=== PATIENT | male | born 1955 | race Caucasian/White ===

== ENCOUNTER 2019-05-20 16:02 | Observation (INO) | payer SELFPAY ==
[2019-05-20] MEDS ORDERED: Thiamine 100 MG Tab PO ONE (16:48)
[2019-05-20] MEDS ORDERED: Nicotine 21 MG/24 Hr Patch TRDERM ONE (16:48)
[2019-05-20] MEDS ORDERED: Folic Acid 1 MG Tab PO ONE (16:48)
[2019-05-20 18:02] LABS: BLOOD UREA NITROGEN,BUN 9 mg/dL (7.0-18.0); CARBON DIOXIDE,CO2 27.1 mmol/L (21.0-32.0); CHLORIDE,CL 103 mmol/L (98-107); GLUCOSE RANDOM 85 mg/dL (74-106); POTASSIUM,K 4.5 mmol/L (3.5-5.1); SODIUM,NA 142 mmol/L (136-148)
[2019-05-20] MEDS ORDERED: Midazolam 1 MG/ML 2 ML SDV IVPUSH ONE (18:47)
--- NOTE | 2019-05-20 19:57 | CT ---
INDICATION: Altered mental status TECHNIQUE: CT head without contrast. COMPARISON: Head CT 05/01/2018 FINDINGS: The ventricles are in proportion to the cortical full flank consistent with patient`s stated age. Negative for acute intracranial hemorrhage, extra-axial fluid collection or midline shift. There is minimal atherosclerotic calcification of the cavernous portions of the internal carotid arteries bilaterally. The epstein-white matter junction is distinct. The basal cisterns are intact. There is minimal mucosal thickening of the maxillary sinuses. The remainder of the visualized paranasal sinuses and mastoid air cells are well pneumatized. The bony calvarium is intact. IMPRESSION: Unremarkable noncontrast CT examination of the head without acute intracranial abnormality. Dictated by Dariana Blum MD @ 05/20/2019 7:54:32 PM Please note that all CT scans at this facility use dose modulation, iterative reconstruction, and/or weight-based dosing when appropriate to reduce radiation dose to as low as reasonably achievable. Dictated by: Dariana Blum MD @ 05/20/2019 19:54:43 (Electronically Signed)
--- NOTE | 2019-05-20 20:06 | EDM.PDOC ---
ED HPI GENERAL MEDICAL PROBLEM - General Chief Complaint: Behavioral/Psych Stated Complaint: UNK Time Seen by Provider: 05/20/19 16:22 - History of Present Illness INITIAL COMMENTS - FREE TEXT/NARRATIVE: HPI 63-year-old male with history of opiate abuse, EtOH abuse, and minimally treated (trazodone) bipolar disorder presents from [facility] where he is displaying bizarre behavior, patient confused. Patient was reportedly acting more abnormally over the last several days, the patient is noted a [employer] to have a wide array of items in his grocery cart in the produce aisle it was eating pieces of paper and acting bizarrely. Patient was recently transition from trazodone to Seroquel and his daughters concern that he may have excessively ingested this medication. History primarily obtained from law enforcement (sick and history), as well as the patients adult daughter. M/S/F/SocHx notable for: please see HPI; remainder reviewed with patient and in chart. ROS: unable to obtain. Exam HR 99, RR 16, BP 169/92, T 36.6C, SaO2 97% on room air. Gen: pleasant, appears given age, non-toxic in appearance, appears fatigued and will frequently dose off. HEENT: pupils 1.5 mm equal round and reactive, appear to be small for ambient light, NC, AT, EOMI. Resp: Clear to auscultation bilaterally, normal work of breathing, no accessory muscle usage. Card: Regular rate and rhythm with no murmurs, rubs, or gallops, extremities warm and well perfused. GI: nontender to palpation throughout all quadrants, no rebound, guarding. : No suprapubic tenderness to palpation. MSK: No visible deformities, strength and tone without visually appreciable deficit. Skin: Normal color with no visible lesions. Neuro: alert and oriented to self, no facial asymmetry, moving all extremities without discernible abnormalities. Psych: grossly confused, tangential, depressed mood and affect. Labs / Imaging: EKG: SR at 89 BPM, QRS 84 msec, QTc 451 msec, no ST-segment elevations or depressions, T-wave inversions or new LBBB. PVCs present. WBC 11.2, HB 14.0, MCV 99.5, INR 0.94, PTT 24, sodium 142, potassium 4.5, magnesium 1.9, AST 17, ALT 19, alkaline phosphatase 67, TSH 2.62. UDS negative, EtOH <3.0. CT head: unremarkable noncontrast CT examination the head without acute intracranial abnormality. MDM Previous chart, nursing note, labs, imaging, and vitals reviewed. A: 63-year-old male with history of opiate abuse, EtOH abuse, and minimally treated (trazodone) bipolar disorder presents from [facility] where he is displaying bizarre behavior; patient confused on arrival. Evaluation: patient confused and with bizarre behavior. Given the evaluation outlined below, tentatively suspect toxic metabolic encephalopathy, possibly secondary to excessive Seroquel usage. Patient is confused but otherwise well appearing, no clear evidence of cardiac etiology, conduction abnormalities. TSH is within normal limits. No significant electrolyte abnormalities. No evidence of EtOH intoxication, drug screen is negative. Patient does demonstrate confusion, decreased [employer] level, and smaller than expected pupils. The latter feature is not consistent with Seroquel ingestion, however the patient may have a mixed ingestion with opiates (the patients favored street drug). No clear evidence of meningitis, however herpes encephalitis (or other encephalitis) cannot be definitively excluded. LP performed as below. Interpretation deferred to the hospitalist as results are pending at time of admission. 10 mg per kilogram acyclovir given. Alternatively , the patient may have alcohol withdraw or Wernickes encephalitis. Patient demonstrates no vital sign abnormalities suggestive of DTs, however this will require monitoring. The patient was given thiamine and folic acid after initial assessment. CT head unremarkable. Impression: AMS. (please reference below for remainder of encounter information) Lumbar Puncture Indication: evaluate for meningitis. Consent: written. The risks and benefits including the risk of post dural puncture headache, pain at the puncture site and infection were discussed with the patient, the patient understood these risks and agreed to the procedure. After a time out in which the patient's identity was confirmed verbally and by their wrist band, the patient was placed in right lateral decubitus position and was prepped and draped in the usual sterile fashion. The L3/4 spinous process interspace was anesthetized with ~3 mL 1% lidocaine without epinephrine and a spinal needle was inserted to obtain ~6 mL of clear fluid. A cell count and differential were ordered on tube 1, glucose and protein levels on tube 2, gram stain, culture, and sensitivity on tube 3, and cell count and differential on tube 4. The patient tolerated the procedure well without apparent complications. Critical Care Time Organ system(s): [employer] Intervention: Assessment of the patient, interpretation of studies, communication related to patient care. Time: 74 minutes were spent directly related to patient care exclusive of separately billed procedures. Bilateral Feet Pain Score (Numeric/FACES): 10 - Related Data Allergies Allergy/AdvReac Type Severity Reaction Status Date / Time No Known Allergies Allergy Verified 05/08/18 10:05 Home Meds: Home Meds QUEtiapine Fumarate [Seroquel] 25 mg PO ASDIRECTED 05/20/19 [History] Past Medical History HEENT History: Reports: Other (See Below) Other HEENT History: hard of hearing Cardiovascular History: Reports: Blood Clots/VTE/DVT Gastrointestinal History: Reports: None Musculoskeletal History: Reports: Fracture, Other (See Below) Other Musculoskeletal History: rib fx, right hand fx Psychiatric History: Reports: Addiction, Other (See Below) Other Psychiatric History: insomnia Endocrine/Metabolic History: Reports: None Hematologic History: Reports: Anticoagulation Therapy - Past Surgical History HEENT Surgical History: Reports: Other (See Below) Cardiovascular Surgical History: Reports: None GI Surgical History: Reports: Other (See Below) Other GI Surgeries/Procedures: spleenectomy Social & Family History - Family History Family Medical History: Noncontributory - Tobacco Use Smoking Status *Q: Current Every Day Smoker Years of Tobacco use: 55 Packs/Tins Daily: 1 - Caffeine Use Caffeine Use: Reports: None - Recreational Drug Use Recreational Drug Use: Yes Recreational Drug Type: Reports: Heroin, Oxycodone ED ROS GENERAL - Review of Systems Review Of Systems: See Below ED EXAM, GENERAL - Physical Exam Exam: See Below Course - Vital Signs Last Recorded V/S: Last Vital Signs Temp 36.6 C 05/20/19 16:14 Pulse 86 05/20/19 19:50 Resp 16 05/20/19 19:50 BP 155/104 H 05/20/19 19:50 Pulse Ox 98 05/20/19 19:50 - Orders/Labs/Meds Orders: Active Orders 24 hr Category Date Time Status EKG 12 Lead [EKG Documentation Completion] [RC] STAT Care 05/20/19 16:49 Active CELL COUNT,CSF [BF] Stat Lab 05/20/19 18:53 Ordered COMPLETE ANALYSIS,CSF [BF] Stat Lab 05/20/19 18:53 Ordered CULTURE CSF + SMEAR [RM] Stat Lab 05/20/19 18:53 Ordered GLUCOSE,CSF [BF] Stat Lab 05/20/19 18:53 Ordered HSV 1/2 PCR [REF] Stat Lab 05/20/19 18:53 Ordered PROTEIN,CSF [BF] Stat Lab 05/20/19 18:53 Ordered VDRL, CSF Stat Lab 05/20/19 18:53 Ordered WEST NILE VIRUS ANTIBODY, CSF Stat Lab 05/20/19 18:53 Ordered Labs: Laboratory Tests 05/20/19 05/20/19 05/20/19 Range/Units 17:07 17:07 17:07 WBC 11.22 H (4.0-11.0) K/uL RBC 4.16 L (4.50-5.90) M/uL Hgb 14.0 (13.0-17.0) g/dL Hct 41.4 (38.0-50.0) % MCV 99.5 H (80.0-98.0) fL MCH 33.7 H (27.0-32.0) pg MCHC 33.8 (31.0-37.0) g/dL RDW Std Deviation 60.0 (28.0-62.0) fl RDW Coeff of Rhonda 17 H (11.0-15.0) % Plt Count 260 (150-400) K/uL MPV 9.80 (7.40-12.00) fL Neut % (Auto) 53.8 (48.0-80.0) % Lymph % (Auto) 35.1 (16.0-40.0) % Tripp % (Auto) 9.6 (0.0-15.0) % Eos % (Auto) 0.9 (0.0-7.0) % Baso % (Auto) 0.6 (0.0-1.5) % Neut # (Auto) 6.0 H (1.4-5.7) K/uL Lymph # (Auto) 3.9 H (0.6-2.4) K/uL Tripp # (Auto) 1.1 H (0.0-0.8) K/uL Eos # (Auto) 0.1 (0.0-0.7) K/uL Baso # (Auto) 0.1 (0.0-0.1) K/uL Nucleated RBC % 0.0 /100WBC Nucleated RBCs # 0 K/uL INR 0.94 APTT (18.6-31.3) SEC PTT Mix Interpretation Cancelled Sodium 142 (136-148) mmol/L Potassium 4.5 (3.5-5.1) mmol/L Chloride 103 (98-107) mmol/L Carbon Dioxide 27.1 (21.0-32.0) mmol/L BUN 9 (7.0-18.0) mg/dL Creatinine 0.8 (0.8-1.3) mg/dL Est Cr Clr Drug Dosing 86.07 mL/min Estimated GFR (MDRD) > 60.0 ml/min Glucose 85 (74-106) mg/dL Calcium 8.7 (8.5-10.1) mg/dL Magnesium 1.9 (1.8-2.4) mg/dL Total Bilirubin 0.4 (0.2-1.0) mg/dL AST 17 (15-37) IU/L ALT 19 (14-63) IU/L Alkaline Phosphatase 67 (46-116) U/L Total Protein 7.5 (6.4-8.2) g/dL Albumin 3.7 (3.4-5.0) g/dL Globulin 3.8 (2.6-4.0) g/dL Albumin/Globulin Ratio 1.0 (0.9-1.6) TSH 3rd Generation 2.62 (0.36-3.74) uIU/mL Salicylates (0-20) mg/dL Urine Opiates Screen (NEGATIVE) Ur Oxycodone Screen (NEGATIVE) Urine Methadone Screen (NEGATIVE) Acetaminophen ug/mL Ur Barbiturates Screen (NEGATIVE) Ur Phencyclidine Scrn (NEGATIVE) Ur Amphetamine Screen (NEGATIVE) U Methamphetamines Scrn (NEGATIVE) U Benzodiazepines Scrn (NEGATIVE) U Cocaine Metab Screen (NEGATIVE) U Marijuana (THC) Screen (NEGATIVE) Ethyl Alcohol < 3.0 mg/dL 05/20/19 05/20/19 05/20/19 Range/Units 17:07 17:07 17:30 WBC (4.0-11.0) K/uL RBC (4.50-5.90) M/uL Hgb (13.0-17.0) g/dL Hct (38.0-50.0) % MCV (80.0-98.0) fL MCH (27.0-32.0) pg MCHC (31.0-37.0) g/dL RDW Std Deviation (28.0-62.0) fl RDW Coeff of Rhonda (11.0-15.0) % Plt Count (150-400) K/uL MPV (7.40-12.00) fL Neut % (Auto) (48.0-80.0) % Lymph % (Auto) (16.0-40.0) % Tripp % (Auto) (0.0-15.0) % Eos % (Auto) (0.0-7.0) % Baso % (Auto) (0.0-1.5) % Neut # (Auto) (1.4-5.7) K/uL Lymph # (Auto) (0.6-2.4) K/uL Tripp # (Auto) (0.0-0.8) K/uL Eos # (Auto) (0.0-0.7) K/uL Baso # (Auto) (0.0-0.1) K/uL Nucleated RBC % /100WBC Nucleated RBCs # K/uL INR APTT (18.6-31.3) SEC PTT Mix Interpretation Sodium (136-148) mmol/L Potassium (3.5-5.1) mmol/L Chloride (98-107) mmol/L Carbon Dioxide (21.0-32.0) mmol/L BUN (7.0-18.0) mg/dL Creatinine (0.8-1.3) mg/dL Est Cr Clr Drug Dosing mL/min Estimated GFR (MDRD) ml/min Glucose (74-106) mg/dL Calcium (8.5-10.1) mg/dL Magnesium (1.8-2.4) mg/dL Total Bilirubin (0.2-1.0) mg/dL AST (15-37) IU/L ALT (14-63) IU/L Alkaline Phosphatase (46-116) U/L Total Protein (6.4-8.2) g/dL Albumin (3.4-5.0) g/dL Globulin (2.6-4.0) g/dL Albumin/Globulin Ratio (0.9-1.6) TSH 3rd Generation (0.36-3.74) uIU/mL Salicylates 4.4 (0-20) mg/dL Urine Opiates Screen NEGATIVE (NEGATIVE) Ur Oxycodone Screen NEGATIVE (NEGATIVE) Urine Methadone Screen NEGATIVE (NEGATIVE) Acetaminophen <2.0 ug/mL Ur Barbiturates Screen NEGATIVE (NEGATIVE) Ur Phencyclidine Scrn NEGATIVE (NEGATIVE) Ur Amphetamine Screen NEGATIVE (NEGATIVE) U Methamphetamines Scrn NEGATIVE (NEGATIVE) U Benzodiazepines Scrn NEGATIVE (NEGATIVE) U Cocaine Metab Screen NEGATIVE (NEGATIVE) U Marijuana (THC) Screen NEGATIVE (NEGATIVE) Ethyl Alcohol mg/dL 05/20/19 Range/Units 17:53 WBC (4.0-11.0) K/uL RBC (4.50-5.90) M/uL Hgb (13.0-17.0) g/dL Hct (38.0-50.0) % MCV (80.0-98.0) fL MCH (27.0-32.0) pg MCHC (31.0-37.0) g/dL RDW Std Deviation (28.0-62.0) fl RDW Coeff of Rhonda (11.0-15.0) % Plt Count (150-400) K/uL MPV (7.40-12.00) fL Neut % (Auto) (48.0-80.0) % Lymph % (Auto) (16.0-40.0) % Tripp % (Auto) (0.0-15.0) % Eos % (Auto) (0.0-7.0) % Baso % (Auto) (0.0-1.5) % Neut # (Auto) (1.4-5.7) K/uL Lymph # (Auto) (0.6-2.4) K/uL Tripp # (Auto) (0.0-0.8) K/uL Eos # (Auto) (0.0-0.7) K/uL Baso # (Auto) (0.0-0.1) K/uL Nucleated RBC % /100WBC Nucleated RBCs # K/uL INR APTT 24.0 (18.6-31.3) SEC PTT Mix Interpretation Sodium (136-148) mmol/L Potassium (3.5-5.1) mmol/L Chloride (98-107) mmol/L Carbon Dioxide (21.0-32.0) mmol/L BUN (7.0-18.0) mg/dL Creatinine (0.8-1.3) mg/dL Est Cr Clr Drug Dosing mL/min Estimated GFR (MDRD) ml/min Glucose (74-106) mg/dL Calcium (8.5-10.1) mg/dL Magnesium (1.8-2.4) mg/dL Total Bilirubin (0.2-1.0) mg/dL AST (15-37) IU/L ALT (14-63) IU/L Alkaline Phosphatase (46-116) U/L Total Protein (6.4-8.2) g/dL Albumin (3.4-5.0) g/dL Globulin (2.6-4.0) g/dL Albumin/Globulin Ratio (0.9-1.6) TSH 3rd Generation (0.36-3.74) uIU/mL Salicylates (0-20) mg/dL Urine Opiates Screen (NEGATIVE) Ur Oxycodone Screen (NEGATIVE) Urine Methadone Screen (NEGATIVE) Acetaminophen ug/mL Ur Barbiturates Screen (NEGATIVE) Ur Phencyclidine Scrn (NEGATIVE) Ur Amphetamine Screen (NEGATIVE) U Methamphetamines Scrn (NEGATIVE) U Benzodiazepines Scrn (NEGATIVE) U Cocaine Metab Screen (NEGATIVE) U Marijuana (THC) Screen (NEGATIVE) Ethyl Alcohol mg/dL Meds: Medications Discontinued Medications Generic Name Dose Route Start Last Admin Trade Name Freq PRN Reason Stop Dose Admin Folic Acid 1 mg 05/20/19 16:48 05/20/19 18:27 Folic Acid PO 05/20/19 16:49 1 mg ONETIME ONE Administration Acyclovir 900 mg/ Sodium 268 mls @ 250 mls/hr 05/20/19 18:47 Chloride IV 05/20/19 19:51 ONETIME ONE Midazolam HCl 1 mg 05/20/19 18:47 05/20/19 19:46 Versed 1 Mg/Ml IVPUSH 05/20/19 18:48 1 mg ONETIME ONE Administration Nicotine 21 mg 05/20/19 16:48 05/20/19 18:20 Habitrol TRDERM 05/20/19 16:49 21 mg ONETIME ONE Administration Thiamine HCl 100 mg 05/20/19 16:48 05/20/19 18:28 Vitamin B-1 PO 05/20/19 16:49 100 mg ONETIME ONE Administration Departure - Departure Time of Disposition: 20:06 Disposition: Admitted As Inpatient 64 Clinical Impression: Altered mental state - Discharge Information Referrals: PCP,Not In Area [Primary Care Provider] - Sepsis Event Note - Evaluation Sepsis Screening Result: No Definite Risk - Focused Exam Vital Signs: Vital Signs Temp Pulse Resp BP Pulse Ox 05/20/19 19:50 86 16 155/104 H 98 05/20/19 18:28 90 16 147/91 H 98 05/20/19 16:14 36.6 C 99 16 169/92 H 97 Date Exam was Performed: 05/20/19 Time Exam was Performed: 20:06 - My Orders Last 24 Hours: My Active Orders 05/20/19 16:49 EKG 12 Lead [EKG Documentation Completion] [RC] STAT 05/20/19 18:53 CELL COUNT,CSF [BF] Stat COMPLETE ANALYSIS,CSF [BF] Stat CULTURE CSF + SMEAR [RM] Stat GLUCOSE,CSF [BF] Stat HSV 1/2 PCR [REF] Stat PROTEIN,CSF [BF] Stat VDRL, CSF Stat WEST NILE VIRUS ANTIBODY, CSF Stat - Assessment/Plan Last 24 Hours: My Active Orders 05/20/19 16:49 EKG 12 Lead [EKG Documentation Completion] [RC] STAT 05/20/19 18:53 CELL COUNT,CSF [BF] Stat COMPLETE ANALYSIS,CSF [BF] Stat CULTURE CSF + SMEAR [RM] Stat GLUCOSE,CSF [BF] Stat HSV 1/2 PCR [REF] Stat PROTEIN,CSF [BF] Stat VDRL, CSF Stat WEST NILE VIRUS ANTIBODY, CSF Stat
[2019-05-20] MEDS: Nicotine 21 MG/24 Hr Patch TRDERM SCH (23:14)
--- NOTE | 2019-05-20 23:19 | PCM.HP.2 ---
H&P History of Present Illness - General Date of Service: 05/20/19 Admit Problem/Dx: Admission Diagnosis/Problem Admission Diagnosis/Problem Altered mental status - History of Present Illness Initial Comments - Free Text/Narative: 63 yo male with pmh of bipolar disordered who presented to the ED with altered mental status. Patient was found at [facility]. He was confused and disorientated in the ED. The daughter who is his guardian reports a history of alcohol and opiod abuse but she thinks he has not drinking anything in a week but she is concerned that she might have taking something illicit or abused his prescriptions. She does report a history of major depression and manic episodes but has not seen him act like this. He follow with [facility] and four days ago he stopped trazadone and switched to Seroquel. Patient reports he struggles with insomnia and that is the main reason he sees [facility]. Daughter brought bill bottles and there are 51 pills left of olanzapine from a presription of of 60 filled on 05/17/19. His seroquil has 48 tablets left of prescription of 60 filled on 05/13/19. In the ED he had an LP which had clear CSF. Since arriving on the medical floor patient daughter reports patients mentation has improved. Bilateral Feet Pain Score (Numeric/FACES): 10 - Related Data Allergies/Adverse Reactions: Allergies Allergy/AdvReac Type Severity Reaction Status Date / Time No Known Allergies Allergy Verified 05/08/18 10:05 Home Medications: Home Meds QUEtiapine Fumarate [Seroquel] 25 mg PO ASDIRECTED 05/20/19 [History] Past Medical History HEENT History: Reports: Other (See Below) Other HEENT History: hard of hearing Cardiovascular History: Reports: Blood Clots/VTE/DVT Gastrointestinal History: Reports: None Musculoskeletal History: Reports: Fracture, Other (See Below) Other Musculoskeletal History: rib fx, right hand fx Psychiatric History: Reports: Addiction, Bipolar, Other (See Below) Other Psychiatric History: insomnia. Per daughter report Manic depressive Endocrine/Metabolic History: Reports: None Hematologic History: Reports: Anticoagulation Therapy Oncologic (Cancer) History: Reports: None Dermatologic History: Reports: None - Infectious Disease History Infectious Disease History: Reports: None - Past Surgical History HEENT Surgical History: Reports: Other (See Below) Cardiovascular Surgical History: Reports: None GI Surgical History: Reports: Other (See Below) Other GI Surgeries/Procedures: spleenectomy Social & Family History - Family History Family Medical History: Noncontributory - Tobacco Use Smoking Status *Q: Current Every Day Smoker Years of Tobacco use: 40 Packs/Tins Daily: 1 Second Hand Smoke Exposure: No - Caffeine Use Caffeine Use: Reports: None - Recreational Drug Use Recreational Drug Use: Yes Drug Use in Last 12 Months: Yes Recreational Drug Type: Reports: Heroin H&P Review of Systems - Review of Systems: Review Of Systems: Comprehensive ROS is negative, except as noted in HPI. Exam - Exam Exam: See Below - Vital Signs Vital Signs: Last Vital Signs Temp 36.4 C 05/20/19 21:36 Pulse 84 05/20/19 21:36 Resp 20 05/20/19 21:36 BP 166/87 H 05/20/19 21:36 Pulse Ox 96 05/20/19 21:36 Weight: 65 kg - Exam General: Alert, Cooperative HEENT: Posterior Pharynx Clear Lungs: Clear to Auscultation, Normal Respiratory Effort Cardiovascular: Regular Rate, Regular Rhythm GI/Abdominal Exam: Soft, Non-Tender Extremities: Non-Tender, No Pedal Edema Skin: Warm, Dry, Intact Neurological: Cranial Nerves Intact, Reflexes Equal Bilateral, Other (pill rolling tremor) - Patient Data Lab Results Last 24 hrs: Laboratory Results - last 24 hr 05/20/19 05/20/19 05/20/19 Range/Units 17:07 17:07 17:07 WBC 11.22 H (4.0-11.0) K/uL RBC 4.16 L (4.50-5.90) M/uL Hgb 14.0 (13.0-17.0) g/dL Hct 41.4 (38.0-50.0) % MCV 99.5 H (80.0-98.0) fL MCH 33.7 H (27.0-32.0) pg MCHC 33.8 (31.0-37.0) g/dL RDW Std Deviation 60.0 (28.0-62.0) fl RDW Coeff of Rhonda 17 H (11.0-15.0) % Plt Count 260 (150-400) K/uL MPV 9.80 (7.40-12.00) fL Neut % (Auto) 53.8 (48.0-80.0) % Lymph % (Auto) 35.1 (16.0-40.0) % Trimble % (Auto) 9.6 (0.0-15.0) % Eos % (Auto) 0.9 (0.0-7.0) % Baso % (Auto) 0.6 (0.0-1.5) % Neut # (Auto) 6.0 H (1.4-5.7) K/uL Lymph # (Auto) 3.9 H (0.6-2.4) K/uL Trimble # (Auto) 1.1 H (0.0-0.8) K/uL Eos # (Auto) 0.1 (0.0-0.7) K/uL Baso # (Auto) 0.1 (0.0-0.1) K/uL Nucleated RBC % 0.0 /100WBC Nucleated RBCs # 0 K/uL INR 0.94 APTT (18.6-31.3) SEC PTT Mix Interpretation Cancelled Sodium 142 (136-148) mmol/L Potassium 4.5 (3.5-5.1) mmol/L Chloride 103 (98-107) mmol/L Carbon Dioxide 27.1 (21.0-32.0) mmol/L BUN 9 (7.0-18.0) mg/dL Creatinine 0.8 (0.8-1.3) mg/dL Est Cr Clr Drug Dosing 86.07 mL/min Estimated GFR (MDRD) > 60.0 ml/min Glucose 85 (74-106) mg/dL Calcium 8.7 (8.5-10.1) mg/dL Magnesium 1.9 (1.8-2.4) mg/dL Total Bilirubin 0.4 (0.2-1.0) mg/dL AST 17 (15-37) IU/L ALT 19 (14-63) IU/L Alkaline Phosphatase 67 (46-116) U/L Total Protein 7.5 (6.4-8.2) g/dL Albumin 3.7 (3.4-5.0) g/dL Globulin 3.8 (2.6-4.0) g/dL Albumin/Globulin Ratio 1.0 (0.9-1.6) TSH 3rd Generation 2.62 (0.36-3.74) uIU/mL CSF Appearance CSF Color CSF WBC (0-0.005) K/uL CSF RBC (0.0-0.0) M/uL CSF Mononuclear Cells % CSF Polymorphonuclear % CSF Glucose (40-70) mg/dL CSF Total Protein (15-45) mg/dL Salicylates (0-20) mg/dL Urine Opiates Screen (NEGATIVE) Ur Oxycodone Screen (NEGATIVE) Urine Methadone Screen (NEGATIVE) Acetaminophen ug/mL Ur Barbiturates Screen (NEGATIVE) Ur Phencyclidine Scrn (NEGATIVE) Ur Amphetamine Screen (NEGATIVE) U Methamphetamines Scrn (NEGATIVE) U Benzodiazepines Scrn (NEGATIVE) U Cocaine Metab Screen (NEGATIVE) U Marijuana (THC) Screen (NEGATIVE) Ethyl Alcohol < 3.0 mg/dL 05/20/19 05/20/19 05/20/19 Range/Units 17:07 17:07 17:30 WBC (4.0-11.0) K/uL RBC (4.50-5.90) M/uL Hgb (13.0-17.0) g/dL Hct (38.0-50.0) % MCV (80.0-98.0) fL MCH (27.0-32.0) pg MCHC (31.0-37.0) g/dL RDW Std Deviation (28.0-62.0) fl RDW Coeff of Rhonda (11.0-15.0) % Plt Count (150-400) K/uL MPV (7.40-12.00) fL Neut % (Auto) (48.0-80.0) % Lymph % (Auto) (16.0-40.0) % Trimble % (Auto) (0.0-15.0) % Eos % (Auto) (0.0-7.0) % Baso % (Auto) (0.0-1.5) % Neut # (Auto) (1.4-5.7) K/uL Lymph # (Auto) (0.6-2.4) K/uL Trimble # (Auto) (0.0-0.8) K/uL Eos # (Auto) (0.0-0.7) K/uL Baso # (Auto) (0.0-0.1) K/uL Nucleated RBC % /100WBC Nucleated RBCs # K/uL INR APTT (18.6-31.3) SEC PTT Mix Interpretation Sodium (136-148) mmol/L Potassium (3.5-5.1) mmol/L Chloride (98-107) mmol/L Carbon Dioxide (21.0-32.0) mmol/L BUN (7.0-18.0) mg/dL Creatinine (0.8-1.3) mg/dL Est Cr Clr Drug Dosing mL/min Estimated GFR (MDRD) ml/min Glucose (74-106) mg/dL Calcium (8.5-10.1) mg/dL Magnesium (1.8-2.4) mg/dL Total Bilirubin (0.2-1.0) mg/dL AST (15-37) IU/L ALT (14-63) IU/L Alkaline Phosphatase (46-116) U/L Total Protein (6.4-8.2) g/dL Albumin (3.4-5.0) g/dL Globulin (2.6-4.0) g/dL Albumin/Globulin Ratio (0.9-1.6) TSH 3rd Generation (0.36-3.74) uIU/mL CSF Appearance CSF Color CSF WBC (0-0.005) K/uL CSF RBC (0.0-0.0) M/uL CSF Mononuclear Cells % CSF Polymorphonuclear % CSF Glucose (40-70) mg/dL CSF Total Protein (15-45) mg/dL Salicylates 4.4 (0-20) mg/dL Urine Opiates Screen NEGATIVE (NEGATIVE) Ur Oxycodone Screen NEGATIVE (NEGATIVE) Urine Methadone Screen NEGATIVE (NEGATIVE) Acetaminophen <2.0 ug/mL Ur Barbiturates Screen NEGATIVE (NEGATIVE) Ur Phencyclidine Scrn NEGATIVE (NEGATIVE) Ur Amphetamine Screen NEGATIVE (NEGATIVE) U Methamphetamines Scrn NEGATIVE (NEGATIVE) U Benzodiazepines Scrn NEGATIVE (NEGATIVE) U Cocaine Metab Screen NEGATIVE (NEGATIVE) U Marijuana (THC) Screen NEGATIVE (NEGATIVE) Ethyl Alcohol mg/dL 05/20/19 05/20/19 05/20/19 Range/Units 17:53 20:00 20:00 WBC (4.0-11.0) K/uL RBC (4.50-5.90) M/uL Hgb (13.0-17.0) g/dL Hct (38.0-50.0) % MCV (80.0-98.0) fL MCH (27.0-32.0) pg MCHC (31.0-37.0) g/dL RDW Std Deviation (28.0-62.0) fl RDW Coeff of Hronda (11.0-15.0) % Plt Count (150-400) K/uL MPV (7.40-12.00) fL Neut % (Auto) (48.0-80.0) % Lymph % (Auto) (16.0-40.0) % Trimble % (Auto) (0.0-15.0) % Eos % (Auto) (0.0-7.0) % Baso % (Auto) (0.0-1.5) % Neut # (Auto) (1.4-5.7) K/uL Lymph # (Auto) (0.6-2.4) K/uL Trimble # (Auto) (0.0-0.8) K/uL Eos # (Auto) (0.0-0.7) K/uL Baso # (Auto) (0.0-0.1) K/uL Nucleated RBC % /100WBC Nucleated RBCs # K/uL INR APTT 24.0 (18.6-31.3) SEC PTT Mix Interpretation Sodium (136-148) mmol/L Potassium (3.5-5.1) mmol/L Chloride (98-107) mmol/L Carbon Dioxide (21.0-32.0) mmol/L BUN (7.0-18.0) mg/dL Creatinine (0.8-1.3) mg/dL Est Cr Clr Drug Dosing mL/min Estimated GFR (MDRD) ml/min Glucose (74-106) mg/dL Calcium (8.5-10.1) mg/dL Magnesium (1.8-2.4) mg/dL Total Bilirubin (0.2-1.0) mg/dL AST (15-37) IU/L ALT (14-63) IU/L Alkaline Phosphatase (46-116) U/L Total Protein (6.4-8.2) g/dL Albumin (3.4-5.0) g/dL Globulin (2.6-4.0) g/dL Albumin/Globulin Ratio (0.9-1.6) TSH 3rd Generation (0.36-3.74) uIU/mL CSF Appearance CLEAR CSF Color COLORLESS CSF WBC 0.001 (0-0.005) K/uL CSF RBC 0.000 (0.0-0.0) M/uL CSF Mononuclear Cells 0.0 % CSF Polymorphonuclear 100.0 % CSF Glucose 55.0 (40-70) mg/dL CSF Total Protein 39 (15-45) mg/dL Salicylates (0-20) mg/dL Urine Opiates Screen (NEGATIVE) Ur Oxycodone Screen (NEGATIVE) Urine Methadone Screen (NEGATIVE) Acetaminophen ug/mL Ur Barbiturates Screen (NEGATIVE) Ur Phencyclidine Scrn (NEGATIVE) Ur Amphetamine Screen (NEGATIVE) U Methamphetamines Scrn (NEGATIVE) U Benzodiazepines Scrn (NEGATIVE) U Cocaine Metab Screen (NEGATIVE) U Marijuana (THC) Screen (NEGATIVE) Ethyl Alcohol mg/dL Result Diagrams: 05/20/19 17:07 05/20/19 17:07 Christian Results Last 24 hrs: Microbiology 05/20/19 20:00 Gram Stain - Final Cerebral Spinal Fluid Sepsis Event Note - Evaluation Sepsis Screening Result: No Definite Risk - Focused Exam Vital Signs: Vital Signs Temp Pulse Resp BP Pulse Ox 05/20/19 21:36 36.4 C 84 20 166/87 H 96 05/20/19 19:50 86 16 155/104 H 98 05/20/19 18:28 90 16 147/91 H 98 05/20/19 16:14 36.6 C 99 16 169/92 H 97 Date Exam was Performed: 05/20/19 Time Exam was Performed: 23:14 Problem List Initiated/Reviewed/Updated: Yes Orders Last 24hrs: Active Orders 24 hr Category Date Time Status Patient Status [ADT] Stat ADT 05/20/19 20:07 Active Antiembolic Devices [RC] PER UNIT ROUTINE Care 05/20/19 23:11 Active Oxygen Therapy [RC] PRN Care 05/20/19 23:11 Active Up ad Alexandra [RC] ASDIRECTED Care 05/20/19 23:11 Active VTE/DVT Education [RC] PER UNIT ROUTINE Care 05/20/19 23:11 Active Vital Signs [RC] Q4H Care 05/20/19 23:11 Active Regular Diet [DIET] Diet 05/20/19 Breakfast Active BASIC METABOLIC PANEL,BMP [CHEM] AM Lab 05/21/19 05:11 Ordered CBC WITH AUTO DIFF [HEME] AM Lab 05/21/19 05:11 Ordered CULTURE CSF + SMEAR [RM] Stat Lab 05/20/19 20:00 Results HSV 1/2 PCR [REF] Stat Lab 05/20/19 20:00 Received UA RFX CHRISTIAN AND CULT IF INDIC [URIN] Urgent Lab 05/20/19 23:12 Ordered VDRL, CSF Stat Lab 05/20/19 20:00 Received WEST NILE VIRUS ANTIBODY, CSF Stat Lab 05/20/19 20:00 Received Folic Acid Med 05/21/19 09:00 Ordered 1 mg PO DAILY LORazepam [Ativan] Med 05/20/19 23:10 Active See Protocol IVPUSH Q4H PRN Nicotine [Habitrol] Med 05/20/19 23:15 Active 21 mg TRDERM DAILY Thiamine [Vitamin B-1] Med 05/21/19 21:00 Ordered 100 mg PO BEDTIME Sequential Compression Device [OM.PC] Per Unit Routine Oth 05/20/19 23:11 Ordered Resuscitation Status Routine Resus Stat 05/20/19 23:11 Ordered Medication Orders Folic Acid (Folic Acid) 1 mg PO DAILY DEANNA Lorazepam (Ativan) 0 mg IVPUSH Q4H PRN; Protocol PRN Reason: CIWWA Nicotine (Habitrol) 21 mg TRDERM DAILY DEANNA Thiamine HCl (Vitamin B-1) 100 mg PO BEDTIME DEANNA Assessment/Plan Comment:: 67 yo male admitted for altered mental status. The differential includes alcohol withdrawal, recent medical adjustment, or drug abuse. We will monitor overnight and consult telepsych in the morning. He will be place on [facility] protocol.
[2019-05-21] MEDS: LORazepam 2 MG/ML SDV IVPUSH PRN ×2 (01:07→19:51)
[2019-05-21] MEDS ORDERED: LORazepam 2 MG/ML SDV IVPUSH STA (01:43)
[2019-05-21] MEDS ORDERED: Haloperidol Lactate 5 MG/ML SDV IM PRN (03:00)
[2019-05-21] MEDS ORDERED: Haloperidol Lactate 5 MG/ML SDV ONE (03:04)
[2019-05-21 05:24] LABS: BLOOD UREA NITROGEN,BUN 12 mg/dL (7.0-18.0); CARBON DIOXIDE,CO2 28.1 mmol/L (21.0-32.0); CHLORIDE,CL 104 mmol/L (98-107); GLUCOSE RANDOM 95 mg/dL (74-106); SODIUM,NA 138 mmol/L (136-148)
[2019-05-21] MEDS: Folic Acid 1 MG Tab PO SCH (09:21)
[2019-05-21] MEDS: Nicotine 21 MG/24 Hr Patch TRDERM SCH (09:22)
[2019-05-21] MEDS: cefTRIAXone 1 GM in Premix Bag 1 BAG IV SCH (09:28)
--- NOTE | 2019-05-21 11:01 | PCM.PN ---
- General Info Date of Service: 05/21/19 Admission Dx/Problem (Free Text): Admission Diagnosis/Problem Admission Diagnosis/Problem Altered mental status Subjective Update: Alert and oriented this morning, sitting up eating breakfast. Unaware of events of yesterday. Denies any chest pain or SOB. Reports generalized aches and pains of everyday. Functional Status: Reports: Pain Controlled, Tolerating Diet, Ambulating (with assistance), Urinating - Review of Systems General: Reports: Weakness (generalized) HEENT: Reports: No Symptoms. Denies: Headaches, Sore Throat Pulmonary: Reports: No Symptoms. Denies: Shortness of Breath Cardiovascular: Reports: No Symptoms. Denies: Chest Pain Gastrointestinal: Reports: No Symptoms. Denies: Abdominal Pain, Nausea, Vomiting Genitourinary: Reports: No Symptoms. Denies: Dysuria, Frequency, Burning Musculoskeletal: Reports: No Symptoms Skin: Reports: No Symptoms Neurological: Reports: Tremors, Gait Disturbance (shaky). Denies: Confusion Psychiatric: Reports: No Symptoms - Patient Data Vitals - Most Recent: Last Vital Signs Temp 98.9 F 05/21/19 07:11 Pulse 94 05/21/19 07:11 Resp 16 05/21/19 07:11 BP 131/77 05/21/19 07:11 Pulse Ox 93 L 05/21/19 07:11 Weight - Most Recent: 63.5 kg I&O - Last 24 Hours: Intake & Output 05/20/19 05/21/19 05/21/19 22:59 06:59 14:59 Intake Total 360 Output Total 150 Balance 210 Lab Results Last 24 Hours: Laboratory Results - last 24 hr 05/20/19 05/20/19 05/20/19 Range/Units 17:07 17:07 17:07 WBC 11.22 H (4.0-11.0) K/uL RBC 4.16 L (4.50-5.90) M/uL Hgb 14.0 (13.0-17.0) g/dL Hct 41.4 (38.0-50.0) % MCV 99.5 H (80.0-98.0) fL MCH 33.7 H (27.0-32.0) pg MCHC 33.8 (31.0-37.0) g/dL RDW Std Deviation 60.0 (28.0-62.0) fl RDW Coeff of Rhonda 17 H (11.0-15.0) % Plt Count 260 (150-400) K/uL MPV 9.80 (7.40-12.00) fL Neut % (Auto) 53.8 (48.0-80.0) % Lymph % (Auto) 35.1 (16.0-40.0) % [place] % (Auto) 9.6 (0.0-15.0) % Eos % (Auto) 0.9 (0.0-7.0) % Baso % (Auto) 0.6 (0.0-1.5) % Neut # (Auto) 6.0 H (1.4-5.7) K/uL Lymph # (Auto) 3.9 H (0.6-2.4) K/uL [place] # (Auto) 1.1 H (0.0-0.8) K/uL Eos # (Auto) 0.1 (0.0-0.7) K/uL Baso # (Auto) 0.1 (0.0-0.1) K/uL Nucleated RBC % 0.0 /100WBC Nucleated RBCs # 0 K/uL INR 0.94 APTT (18.6-31.3) SEC PTT Mix Interpretation Cancelled Sodium 142 (136-148) mmol/L Potassium 4.5 (3.5-5.1) mmol/L Chloride 103 (98-107) mmol/L Carbon Dioxide 27.1 (21.0-32.0) mmol/L BUN 9 (7.0-18.0) mg/dL Creatinine 0.8 (0.8-1.3) mg/dL Est Cr Clr Drug Dosing 86.07 mL/min Estimated GFR (MDRD) > 60.0 ml/min Glucose 85 (74-106) mg/dL Calcium 8.7 (8.5-10.1) mg/dL Magnesium 1.9 (1.8-2.4) mg/dL Total Bilirubin 0.4 (0.2-1.0) mg/dL AST 17 (15-37) IU/L ALT 19 (14-63) IU/L Alkaline Phosphatase 67 (46-116) U/L Total Protein 7.5 (6.4-8.2) g/dL Albumin 3.7 (3.4-5.0) g/dL Globulin 3.8 (2.6-4.0) g/dL Albumin/Globulin Ratio 1.0 (0.9-1.6) TSH 3rd Generation 2.62 (0.36-3.74) uIU/mL Urine Color Urine Appearance Urine pH (5.0-8.0) Ur Specific [place] (1.001-1.035) Urine Protein (NEGATIVE) mg/dL Urine Glucose (UA) (NEGATIVE) mg/dL Urine Ketones (NEGATIVE) mg/dL Urine Occult Blood (NEGATIVE) Urine Nitrite (NEGATIVE) Urine Bilirubin (NEGATIVE) Urine Urobilinogen (<2.0) EU/dL Ur Leukocyte Esterase (NEGATIVE) Urine RBC (0-2/HPF) Urine WBC (0-5/HPF) Ur Epithelial Cells (NONE-FEW) Urine Bacteria (NEGATIVE) Urine Mucus (NONE-MOD) CSF Appearance CSF Color CSF WBC (0-0.005) K/uL CSF RBC (0.0-0.0) M/uL CSF Mononuclear Cells % CSF Polymorphonuclear % CSF Glucose (40-70) mg/dL CSF Total Protein (15-45) mg/dL Salicylates (0-20) mg/dL Urine Opiates Screen (NEGATIVE) Ur Oxycodone Screen (NEGATIVE) Urine Methadone Screen (NEGATIVE) Acetaminophen ug/mL Ur Barbiturates Screen (NEGATIVE) Ur Phencyclidine Scrn (NEGATIVE) Ur Amphetamine Screen (NEGATIVE) U Methamphetamines Scrn (NEGATIVE) U Benzodiazepines Scrn (NEGATIVE) U Cocaine Metab Screen (NEGATIVE) U Marijuana (THC) Screen (NEGATIVE) Ethyl Alcohol < 3.0 mg/dL 05/20/19 05/20/19 05/20/19 Range/Units 17:07 17:07 17:30 WBC (4.0-11.0) K/uL RBC (4.50-5.90) M/uL Hgb (13.0-17.0) g/dL Hct (38.0-50.0) % MCV (80.0-98.0) fL MCH (27.0-32.0) pg MCHC (31.0-37.0) g/dL RDW Std Deviation (28.0-62.0) fl RDW Coeff of Rhonda (11.0-15.0) % Plt Count (150-400) K/uL MPV (7.40-12.00) fL Neut % (Auto) (48.0-80.0) % Lymph % (Auto) (16.0-40.0) % [place] % (Auto) (0.0-15.0) % Eos % (Auto) (0.0-7.0) % Baso % (Auto) (0.0-1.5) % Neut # (Auto) (1.4-5.7) K/uL Lymph # (Auto) (0.6-2.4) K/uL [place] # (Auto) (0.0-0.8) K/uL Eos # (Auto) (0.0-0.7) K/uL Baso # (Auto) (0.0-0.1) K/uL Nucleated RBC % /100WBC Nucleated RBCs # K/uL INR APTT (18.6-31.3) SEC PTT Mix Interpretation Sodium (136-148) mmol/L Potassium (3.5-5.1) mmol/L Chloride (98-107) mmol/L Carbon Dioxide (21.0-32.0) mmol/L BUN (7.0-18.0) mg/dL Creatinine (0.8-1.3) mg/dL Est Cr Clr Drug Dosing mL/min Estimated GFR (MDRD) ml/min Glucose (74-106) mg/dL Calcium (8.5-10.1) mg/dL Magnesium (1.8-2.4) mg/dL Total Bilirubin (0.2-1.0) mg/dL AST (15-37) IU/L ALT (14-63) IU/L Alkaline Phosphatase (46-116) U/L Total Protein (6.4-8.2) g/dL Albumin (3.4-5.0) g/dL Globulin (2.6-4.0) g/dL Albumin/Globulin Ratio (0.9-1.6) TSH 3rd Generation (0.36-3.74) uIU/mL Urine Color Urine Appearance Urine pH (5.0-8.0) Ur Specific [place] (1.001-1.035) Urine Protein (NEGATIVE) mg/dL Urine Glucose (UA) (NEGATIVE) mg/dL Urine Ketones (NEGATIVE) mg/dL Urine Occult Blood (NEGATIVE) Urine Nitrite (NEGATIVE) Urine Bilirubin (NEGATIVE) Urine Urobilinogen (<2.0) EU/dL Ur Leukocyte Esterase (NEGATIVE) Urine RBC (0-2/HPF) Urine WBC (0-5/HPF) Ur Epithelial Cells (NONE-FEW) Urine Bacteria (NEGATIVE) Urine Mucus (NONE-MOD) CSF Appearance CSF Color CSF WBC (0-0.005) K/uL CSF RBC (0.0-0.0) M/uL CSF Mononuclear Cells % CSF Polymorphonuclear % CSF Glucose (40-70) mg/dL CSF Total Protein (15-45) mg/dL Salicylates 4.4 (0-20) mg/dL Urine Opiates Screen NEGATIVE (NEGATIVE) Ur Oxycodone Screen NEGATIVE (NEGATIVE) Urine Methadone Screen NEGATIVE (NEGATIVE) Acetaminophen <2.0 ug/mL Ur Barbiturates Screen NEGATIVE (NEGATIVE) Ur Phencyclidine Scrn NEGATIVE (NEGATIVE) Ur Amphetamine Screen NEGATIVE (NEGATIVE) U Methamphetamines Scrn NEGATIVE (NEGATIVE) U Benzodiazepines Scrn NEGATIVE (NEGATIVE) U Cocaine Metab Screen NEGATIVE (NEGATIVE) U Marijuana (THC) Screen NEGATIVE (NEGATIVE) Ethyl Alcohol mg/dL 05/20/19 05/20/19 05/20/19 Range/Units 17:53 20:00 20:00 WBC (4.0-11.0) K/uL RBC (4.50-5.90) M/uL Hgb (13.0-17.0) g/dL Hct (38.0-50.0) % MCV (80.0-98.0) fL MCH (27.0-32.0) pg MCHC (31.0-37.0) g/dL RDW Std Deviation (28.0-62.0) fl RDW Coeff of Rhonda (11.0-15.0) % Plt Count (150-400) K/uL MPV (7.40-12.00) fL Neut % (Auto) (48.0-80.0) % Lymph % (Auto) (16.0-40.0) % [place] % (Auto) (0.0-15.0) % Eos % (Auto) (0.0-7.0) % Baso % (Auto) (0.0-1.5) % Neut # (Auto) (1.4-5.7) K/uL Lymph # (Auto) (0.6-2.4) K/uL [place] # (Auto) (0.0-0.8) K/uL Eos # (Auto) (0.0-0.7) K/uL Baso # (Auto) (0.0-0.1) K/uL Nucleated RBC % /100WBC Nucleated RBCs # K/uL INR APTT 24.0 (18.6-31.3) SEC PTT Mix Interpretation Sodium (136-148) mmol/L Potassium (3.5-5.1) mmol/L Chloride (98-107) mmol/L Carbon Dioxide (21.0-32.0) mmol/L BUN (7.0-18.0) mg/dL Creatinine (0.8-1.3) mg/dL Est Cr Clr Drug Dosing mL/min Estimated GFR (MDRD) ml/min Glucose (74-106) mg/dL Calcium (8.5-10.1) mg/dL Magnesium (1.8-2.4) mg/dL Total Bilirubin (0.2-1.0) mg/dL AST (15-37) IU/L ALT (14-63) IU/L Alkaline Phosphatase (46-116) U/L Total Protein (6.4-8.2) g/dL Albumin (3.4-5.0) g/dL Globulin (2.6-4.0) g/dL Albumin/Globulin Ratio (0.9-1.6) TSH 3rd Generation (0.36-3.74) uIU/mL Urine Color Urine Appearance Urine pH (5.0-8.0) Ur Specific [place] (1.001-1.035) Urine Protein (NEGATIVE) mg/dL Urine Glucose (UA) (NEGATIVE) mg/dL Urine Ketones (NEGATIVE) mg/dL Urine Occult Blood (NEGATIVE) Urine Nitrite (NEGATIVE) Urine Bilirubin (NEGATIVE) Urine Urobilinogen (<2.0) EU/dL Ur Leukocyte Esterase (NEGATIVE) Urine RBC (0-2/HPF) Urine WBC (0-5/HPF) Ur Epithelial Cells (NONE-FEW) Urine Bacteria (NEGATIVE) Urine Mucus (NONE-MOD) CSF Appearance CLEAR CSF Color COLORLESS CSF WBC 0.001 (0-0.005) K/uL CSF RBC 0.000 (0.0-0.0) M/uL CSF Mononuclear Cells 0.0 % CSF Polymorphonuclear 100.0 % CSF Glucose 55.0 (40-70) mg/dL CSF Total Protein 39 (15-45) mg/dL Salicylates (0-20) mg/dL Urine Opiates Screen (NEGATIVE) Ur Oxycodone Screen (NEGATIVE) Urine Methadone Screen (NEGATIVE) Acetaminophen ug/mL Ur Barbiturates Screen (NEGATIVE) Ur Phencyclidine Scrn (NEGATIVE) Ur Amphetamine Screen (NEGATIVE) U Methamphetamines Scrn (NEGATIVE) U Benzodiazepines Scrn (NEGATIVE) U Cocaine Metab Screen (NEGATIVE) U Marijuana (THC) Screen (NEGATIVE) Ethyl Alcohol mg/dL 05/21/19 05/21/19 05/21/19 Range/Units 00:30 04:50 04:50 WBC 13.12 H (4.0-11.0) K/uL RBC 3.93 L (4.50-5.90) M/uL Hgb 12.9 L (13.0-17.0) g/dL Hct 38.7 (38.0-50.0) % MCV 98.5 H (80.0-98.0) fL MCH 32.8 H (27.0-32.0) pg MCHC 33.3 (31.0-37.0) g/dL RDW Std Deviation 58.3 (28.0-62.0) fl RDW Coeff of Rhonda 16 H (11.0-15.0) % Plt Count 235 (150-400) K/uL MPV 9.90 (7.40-12.00) fL Neut % (Auto) 61.5 (48.0-80.0) % Lymph % (Auto) 24.8 (16.0-40.0) % [place] % (Auto) 11.3 (0.0-15.0) % Eos % (Auto) 1.8 (0.0-7.0) % Baso % (Auto) 0.6 (0.0-1.5) % Neut # (Auto) 8.1 H (1.4-5.7) K/uL Lymph # (Auto) 3.3 H (0.6-2.4) K/uL [place] # (Auto) 1.5 H (0.0-0.8) K/uL Eos # (Auto) 0.2 (0.0-0.7) K/uL Baso # (Auto) 0.1 (0.0-0.1) K/uL Nucleated RBC % 0.0 /100WBC Nucleated RBCs # 0 K/uL INR APTT (18.6-31.3) SEC PTT Mix Interpretation Sodium 138 (136-148) mmol/L Potassium 4.0 (3.5-5.1) mmol/L Chloride 104 (98-107) mmol/L Carbon Dioxide 28.1 (21.0-32.0) mmol/L BUN 12 (7.0-18.0) mg/dL Creatinine 0.7 L (0.8-1.3) mg/dL Est Cr Clr Drug Dosing 94.49 mL/min Estimated GFR (MDRD) > 60.0 ml/min Glucose 95 (74-106) mg/dL Calcium 8.0 L (8.5-10.1) mg/dL Magnesium (1.8-2.4) mg/dL Total Bilirubin (0.2-1.0) mg/dL AST (15-37) IU/L ALT (14-63) IU/L Alkaline Phosphatase (46-116) U/L Total Protein (6.4-8.2) g/dL Albumin (3.4-5.0) g/dL Globulin (2.6-4.0) g/dL Albumin/Globulin Ratio (0.9-1.6) TSH 3rd Generation (0.36-3.74) uIU/mL Urine Color YELLOW Urine Appearance SLT CLOUDY Urine pH 6.5 (5.0-8.0) Ur Specific [place] 1.020 (1.001-1.035) Urine Protein NEGATIVE (NEGATIVE) mg/dL Urine Glucose (UA) NEGATIVE (NEGATIVE) mg/dL Urine Ketones NEGATIVE (NEGATIVE) mg/dL Urine Occult Blood NEGATIVE (NEGATIVE) Urine Nitrite POSITIVE H (NEGATIVE) Urine Bilirubin NEGATIVE (NEGATIVE) Urine Urobilinogen 0.2 (<2.0) EU/dL Ur Leukocyte Esterase TRACE H (NEGATIVE) Urine RBC NONE SEEN (0-2/HPF) Urine WBC 0-3 (0-5/HPF) Ur Epithelial Cells OCCASIONAL (NONE-FEW) Urine Bacteria 3+ H (NEGATIVE) Urine Mucus LIGHT (NONE-MOD) CSF Appearance CSF Color CSF WBC (0-0.005) K/uL CSF RBC (0.0-0.0) M/uL CSF Mononuclear Cells % CSF Polymorphonuclear % CSF Glucose (40-70) mg/dL CSF Total Protein (15-45) mg/dL Salicylates (0-20) mg/dL Urine Opiates Screen (NEGATIVE) Ur Oxycodone Screen (NEGATIVE) Urine Methadone Screen (NEGATIVE) Acetaminophen ug/mL Ur Barbiturates Screen (NEGATIVE) Ur Phencyclidine Scrn (NEGATIVE) Ur Amphetamine Screen (NEGATIVE) U Methamphetamines Scrn (NEGATIVE) U Benzodiazepines Scrn (NEGATIVE) U Cocaine Metab Screen (NEGATIVE) U Marijuana (THC) Screen (NEGATIVE) Ethyl Alcohol mg/dL Christian Results Last 24 Hours: Microbiology 05/20/19 20:00 Gram Stain - Final Cerebral Spinal Fluid CSF Culture - Preliminary NO GROWTH AFTER 1 DAY Med Orders - Current: Current Medications Folic Acid (Folic Acid) 1 mg PO DAILY [facility] Last Admin: 05/21/19 09:21 Dose: 1 mg Haloperidol Lactate (Haldol) 5 mg IM Q8H PRN PRN Reason: Agitation Last Admin: 05/21/19 03:10 Dose: 5 mg Ceftriaxone Sodium/Dextrose 1 (gm/ Premix) 50 mls @ 100 mls/hr IV Q24H DEANNA Last Admin: 05/21/19 09:28 Dose: 100 mls/hr Lorazepam (Ativan) 0 mg IVPUSH Q4H PRN; Protocol PRN Reason: CIWWA Last Admin: 05/21/19 01:07 Dose: 1 mg Nicotine (Habitrol) 21 mg TRDERM DAILY [facility] Last Admin: 05/21/19 09:22 Dose: 21 mg Thiamine HCl (Vitamin B-1) 100 mg PO BEDTIME DEANNA Discontinued Medications Folic Acid (Folic Acid) 1 mg PO ONETIME ONE Stop: 05/20/19 16:49 Last Admin: 05/20/19 18:27 Dose: 1 mg Haloperidol Lactate (Haldol) Confirm Administered Dose 5 mg .ROUTE .STK-MED ONE Stop: 05/21/19 03:05 Last Admin: 05/21/19 03:10 Dose: Not Given Acyclovir 900 mg/ Sodium (Chloride) 268 mls @ 250 mls/hr IV ONETIME ONE Stop: 05/20/19 19:51 Last Admin: 05/21/19 00:04 Dose: Not Given Acyclovir 900 mg/ Sodium (Chloride) 268 mls @ 250 mls/hr IV ONETIME ONE Stop: 05/20/19 22:19 Last Admin: 05/20/19 23:11 Dose: 250 mls/hr Lorazepam (Ativan) 1 mg IVPUSH ONETIME STA Stop: 05/21/19 01:44 Last Admin: 05/21/19 01:52 Dose: 1 mg Midazolam HCl (Versed 1 Mg/Ml) 1 mg IVPUSH ONETIME ONE Stop: 05/20/19 18:48 Last Admin: 05/20/19 19:46 Dose: 1 mg Nicotine (Habitrol) 21 mg TRDERM ONETIME ONE Stop: 05/20/19 16:49 Last Admin: 05/20/19 18:20 Dose: 21 mg Thiamine HCl (Vitamin B-1) 100 mg PO ONETIME ONE Stop: 05/20/19 16:49 Last Admin: 05/20/19 18:28 Dose: 100 mg - Exam General: Alert, Oriented, Cooperative, No Acute Distress Lungs: Clear to Auscultation, Normal Respiratory Effort Cardiovascular: Regular Rate, Regular Rhythm GI/Abdominal Exam: Normal Bowel Sounds, Soft, Non-Tender Extremities: Normal Inspection, Normal Range of Motion, Non-Tender Neurological: No New Focal Deficit Psy/Mental Status: Alert, Normal Affect, Normal Mood Sepsis Event Note - Evaluation Sepsis Screening Result: No Definite Risk - Focused Exam Vital Signs: Vital Signs Temp Pulse Resp BP Pulse Ox 05/21/19 07:11 98.9 F 94 16 131/77 93 L 05/20/19 23:11 97.9 F 106 H 20 133/63 94 L Date Exam was Performed: 05/21/19 Time Exam was Performed: 10:54 - Problem List & Annotations (1) Altered mental state SNOMED Code(s): 748854358 Code(s): R41.82 - ALTERED MENTAL STATUS, UNSPECIFIED Status: Acute Current Visit: Yes Qualifiers: Altered mental status type: delirium Qualified Code(s): R41.0 - Disorientation, unspecified (2) UTI (urinary tract infection) SNOMED Code(s): 75814966 Code(s): N39.0 - URINARY TRACT INFECTION, SITE NOT SPECIFIED Status: Acute Current Visit: Yes (3) Hx of deep venous thrombosis SNOMED Code(s): 438777121 Code(s): Z86.718 - PERSONAL HISTORY OF OTHER VENOUS THROMBOSIS AND EMBOLISM Status: Chronic Current Visit: Yes (4) Insomnia SNOMED Code(s): 533258315 Code(s): G47.00 - INSOMNIA, UNSPECIFIED Status: Chronic Current Visit: Yes (5) Asplenia SNOMED Code(s): 730720753, 741712119 Code(s): Q89.01 - ASPLENIA (CONGENITAL) Status: Chronic Current Visit: No (6) Manic depressive disorder SNOMED Code(s): 04979107 Code(s): F31.9 - BIPOLAR DISORDER, UNSPECIFIED Status: Chronic Current Visit: Yes (7) Alcohol use SNOMED Code(s): 764749 Code(s): Z72.89 - OTHER PROBLEMS RELATED TO LIFESTYLE Status: Chronic Current Visit: Yes (8) Hx of substance abuse SNOMED Code(s): 763127478 Code(s): F19.11 - OTHER PSYCHOACTIVE SUBSTANCE ABUSE, IN REMISSION Status: Chronic Current Visit: Yes - Problem List Review Problem List Initiated/Reviewed/Updated: Yes - My Orders Last 24 Hours: My Active Orders 05/21/19 09:15 cefTRIAXone [Rocephin in Dextrose,Iso-Osm 1 GM/50 ML] 1 gm Premix Bag 1 bag IV Q24H - Plan Plan:: 67 yo male admitted for altered mental status. The differential includes alcohol withdrawal, recent medical adjustment, or drug abuse. 1. AMS: Improved overnight, needed Haldol at 0300. This morning alert and oriented. Consult telepsych, Dr Allen. We discussed patient this morning, he will see in the next few hours. Utox negative. Spinal tap in ED obtained, CSF colorless, cultures pending, given Acyclovir in ED. 2. UTI: UA revealed UTI, UC pending. Will start Rocephin. 3. Alcohol abuse: Daughter reports last drink over 2 weeks ago, continue CIWAA protocol. Thiamine and folic acid supplementation. VTe prophylaxis: Heparin Dispo: 1-2 days pending psych evaluation.
[2019-05-21] MEDS ORDERED: Topiramate 50 MG Tab PO SCH (13:15)
--- NOTE | 2019-05-21 13:15 | PCM.SN ---
- Free Text/Narrative Note: Spoke with Dr Allen after consultation. Please see his full consultation. Will stop Zyprexa. Continue to treat UTI and would recommend keeping tonight and possibly tomorrow if needed to monitor. But daughter feels he is less and less confused as the day goes on. Continue Seroquel, but increase to 200 mg tonight, then 300 mg at bedtime thereafter. Topamax 25 mg BID x 7 days then increased to 50 mg BID thereafter He did not feel like he needed acute inpatient psychiatric treatment. Avoid benzodiazepines, unless needed for CIWAA scores, he has been without a drink per daughter and patient for 4 weeks, [address] Allen gave patient and daughter his number for follow up at [facility] telepsych clinic
[2019-05-21] MEDS: Topiramate 50 MG Tab PO SCH ×2 (15:04→20:02)
[2019-05-21] MEDS ORDERED: QUEtiapine 100 MG Tab PO SCH (21:00)
[2019-05-21] MEDS ORDERED: Thiamine 100 MG Tab PO SCH (21:00)
[2019-05-22 07:06] LABS: BLOOD UREA NITROGEN,BUN 14 mg/dL (7.0-18.0); CARBON DIOXIDE,CO2 22.2 mmol/L (21.0-32.0); CHLORIDE,CL 106 mmol/L (98-107); GLUCOSE RANDOM 103 mg/dL (74-106); POTASSIUM,K 4.2 mmol/L (3.5-5.1); SODIUM,NA 138 mmol/L (136-148)
[2019-05-22] MEDS: Nicotine 21 MG/24 Hr Patch TRDERM SCH (08:37)
[2019-05-22] MEDS: Folic Acid 1 MG Tab PO SCH (08:38)
[2019-05-22] MEDS: Topiramate 50 MG Tab PO SCH (08:38)
[2019-05-22] MEDS: cefTRIAXone 1 GM in Premix Bag 1 BAG IV SCH (08:39)
[2019-05-22] MEDS: LORazepam 2 MG/ML SDV IVPUSH PRN (09:04)
--- NOTE | 2019-05-22 18:00 | PCM.DCSUM1 ---
Discharge Summary - Hospital Course Free Text/Narrative:: Discharge summary Consultations:Dr Allen of Psychiatry Procedures: Hospital course: Patient is a 63-year-old male with a significant past medical history of bipolar disorder presented with altered mental status; patient was found to be confused and eating paper in [employer]. Family patient has history of alcohol and opioid abuse however per family and patient states his last drink was either 2 to 4 weeks prior. Only other major change in patient's medical history was a change from patient's trazodone which was stopped and was switched to Seroquel. ED course; LP performed with clear CSF. head CT negative. Dr. Allen of psychiatry was consulted; recommendations including discontinuing Zyprexa continuing Seroquel increased at 200 mg on first night and 300 mg at bedtime thereafter. Topamax is also added 25 mg twice daily for 7 days with increase in dosage to 50 mg twice daily thereafter. Patient was also found to have a mild UTI and treated with ceftriaxone; on day of discharge patient was stable and back at baseline. Prescriptions handed to patient as pharmacy was closed; antibiotics for UTI were also given; ciprofloxacin. Patient was advised to follow-up with [facility]ings[facility] and with Dr. Allen when Dr. Allen clinic is open. Discharge condition:Stable Disposition:Home - Discharge Data Discharge Date: 05/22/19 Discharge Disposition: Home, Self-Care 01 Condition: Stable - Referral to Home Health Primary Care Physician: PCP Not In Area - Patient Summary/Data Consults: Consultations 05/21/19 11:00 Consult to Physician [CONS] Routine - Patient Instructions Diet: Heart Healthy Diet Notify Provider of: Fever, Increased Pain, Nausea and/or Vomiting Other/Special Instructions: Follow up with your PCP and psychologist before your prescriptions run out - Discharge Plan Prescriptions/Med Rec: Ciprofloxacin HCl [Cipro] 500 mg PO Q12HR 7 Days #14 tablet Topiramate [Topamax] 50 mg PO BID #42 tablet Home Medications: Home Meds Ciprofloxacin HCl [Cipro] 500 mg PO Q12HR 7 Days #14 tablet 05/22/19 [Rx] Folic Acid 1 mg PO DAILY tablet 05/22/19 [Rx] Omeprazole Magnesium [Prilosec Otc] 20 mg PO DAILY 05/22/19 [History] QUEtiapine [SEROquel] 300 mg PO BEDTIME #0 05/22/19 [Rx] Thiamine [Vitamin B-1] 100 mg PO BEDTIME tablet 05/22/19 [Rx] Topiramate [Topamax] 50 mg PO BID #42 tablet 05/22/19 [Rx] Oxygen Therapy Mode: Room Air Patient Handouts: Confusion, Quetiapine tablets, Ciprofloxacin tablets, Topiramate tablets Referrals: Sony Cameron MD [Ordering Only Provider] - 05/27/19 2:30 pm - Discharge Summary/Plan Comment DC Time >30 min.: No - Patient Data Vitals - Most Recent: Last Vital Signs Temp 97.6 F 05/22/19 08:00 Pulse 96 05/22/19 08:00 Resp 20 05/22/19 08:00 BP 136/72 05/22/19 08:00 Pulse Ox 94 L 05/22/19 08:00 Weight - Most Recent: 139 lb 15.896 oz I&O - Last 24 hours: Intake & Output 05/22/19 05/22/19 05/22/19 06:59 14:59 22:59 Intake Total 400 Output Total 800 Balance -400 Lab Results - Last 24 hrs: Laboratory Results - last 24 hr 05/22/19 05/22/19 Range/Units 06:05 06:05 WBC 13.28 H (4.0-11.0) K/uL RBC 3.91 L (4.50-5.90) M/uL Hgb 13.2 (13.0-17.0) g/dL Hct 38.7 (38.0-50.0) % MCV 99.0 H (80.0-98.0) fL MCH 33.8 H (27.0-32.0) pg MCHC 34.1 (31.0-37.0) g/dL RDW Std Deviation 59.3 (28.0-62.0) fl RDW Coeff of Rhonda 16 H (11.0-15.0) % Plt Count 206 (150-400) K/uL MPV 10.40 (7.40-12.00) fL Add Manual Diff YES Neutrophils % (Manual) 61 (48.0-80.0) % Band Neutrophils % 1 % Lymphocytes % (Manual) 28 (16.0-40.0) % Monocytes % (Manual) 7 (0.0-15.0) % Eosinophils % (Manual) 2 (0.0-7.0) % Basophils % (Manual) 1 (0.0-1.5) % Nucleated RBC % 0.0 /100WBC Absolute Seg Neuts 8.1 H (1.4-5.7) Band Neutrophils # 0.1 Lymphocytes # (Manual) 3.7 H (0.6-2.4) Monocytes # (Manual) 0.9 H (0.0-0.8) Eosinophils # (Manual) 0.3 (0.0-0.7) Basophils # (Manual) 0.1 (0.0-0.1) Nucleated RBCs # 0 K/uL Sodium 138 (136-148) mmol/L Potassium 4.2 (3.5-5.1) mmol/L Chloride 106 (98-107) mmol/L Carbon Dioxide 22.2 (21.0-32.0) mmol/L BUN 14 (7.0-18.0) mg/dL Creatinine 0.7 L (0.8-1.3) mg/dL Est Cr Clr Drug Dosing 94.49 mL/min Estimated GFR (MDRD) > 60.0 ml/min Glucose 103 (74-106) mg/dL Calcium 8.5 (8.5-10.1) mg/dL COCO Results - Last 24 hrs: Microbiology 05/21/19 00:30 Urine Culture - Final Urine, Clean Catch MIXED NUNU >100,000 CFU/ML 05/20/19 20:00 Gram Stain - Final Cerebral Spinal Fluid CSF Culture - Preliminary NO GROWTH AFTER 2 DAYS Med Orders - Current: Current Medications Discontinued Medications Folic Acid (Folic Acid) 1 mg PO ONETIME ONE Stop: 05/20/19 16:49 Last Admin: 05/20/19 18:27 Dose: 1 mg Folic Acid (Folic Acid) 1 mg PO DAILY [facility] Last Admin: 05/22/19 08:38 Dose: 1 mg Haloperidol Lactate (Haldol) 5 mg IM Q8H PRN PRN Reason: Agitation Last Admin: 05/21/19 03:10 Dose: 5 mg Haloperidol Lactate (Haldol) Confirm Administered Dose 5 mg .ROUTE .STK-MED ONE Stop: 05/21/19 03:05 Last Admin: 05/21/19 03:10 Dose: Not Given Acyclovir 900 mg/ Sodium (Chloride) 268 mls @ 250 mls/hr IV ONETIME ONE Stop: 05/20/19 19:51 Last Admin: 05/21/19 00:04 Dose: Not Given Acyclovir 900 mg/ Sodium (Chloride) 268 mls @ 250 mls/hr IV ONETIME ONE Stop: 05/20/19 22:19 Last Admin: 05/20/19 23:11 Dose: 250 mls/hr Ceftriaxone Sodium/Dextrose 1 (gm/ Premix) 50 mls @ 100 mls/hr IV Q24H [facility] Last Admin: 05/22/19 08:39 Dose: 100 mls/hr Lorazepam (Ativan) 0 mg IVPUSH Q4H PRN; Protocol PRN Reason: CIWWA Last Admin: 05/22/19 09:04 Dose: 1 mg Lorazepam (Ativan) 1 mg IVPUSH ONETIME STA Stop: 05/21/19 01:44 Last Admin: 05/21/19 01:52 Dose: 1 mg Midazolam HCl (Versed 1 Mg/Ml) 1 mg IVPUSH ONETIME ONE Stop: 05/20/19 18:48 Last Admin: 05/20/19 19:46 Dose: 1 mg Nicotine (Habitrol) 21 mg TRDERM ONETIME ONE Stop: 05/20/19 16:49 Last Admin: 05/20/19 18:20 Dose: 21 mg Nicotine (Habitrol) 21 mg TRDERM DAILY [facility] Last Admin: 05/22/19 08:37 Dose: 21 mg Quetiapine Fumarate (Seroquel) 200 mg PO BEDTIME [facility]AN[facility] Stop: 05/21/19 21:01 Last Admin: 05/21/19 20:08 Dose: 200 mg Thiamine HCl (Vitamin B-1) 100 mg PO ONETIME ONE Stop: 05/20/19 16:49 Last Admin: 05/20/19 18:28 Dose: 100 mg Thiamine HCl (Vitamin B-1) 100 mg PO BEDTIME [facility] Last Admin: 05/21/19 20:02 Dose: 100 mg Topiramate (Topamax) 25 mg PO BID [facility] Last Admin: 05/21/19 15:43 Dose: Not Given Topiramate (Topamax) 25 mg PO BID [facility] Last Admin: 05/22/19 08:38 Dose: 25 mg
--- NOTE | 2019-05-25 08:32 | CONS ---
DATE OF CONSULTATION: 05/21/2019 DATE OF : 1955 PRIMARY CARE PHYSICIAN: Alexandra Frank. PCP Site where the services are provided is [facility] in [place], [place]. Site where the services are provided from our offices in [facility]. Length of service for this 60-minute inpatient Telemedicine event is 60 minutes. IDENTIFICATION: The patient is a 63-year-old male, who was admitted to the inpatient MedSurg Unit at [facility] in [place], [place]. He is seen for psychiatric consultation per the request of staff attending, Dr. Wallace; and nurse practitioner, Esther Agarwal, and their treatment team. CHIEF COMPLAINT: "Late at night, I was seeing visual hallucinations." HISTORY OF PRESENT ILLNESS: The patient is a 63-year-old male, who was admitted to inpatient MedSurg Unit at [facility] in [place], [place], after becoming confused while at [employer] and being found eating paper. The patient does have a significant history of alcoholism, but his daughter, Taryn, who is with him for the interview, states that the patient had recently been trying to attain sobriety "he hadn't really had any drinks in the last 4 weeks." The patient states that he has been pretty down because he has been "grieving for my sister." She recently. The patient also states that, while he has been trying to stay sober, a lot of the reason that he drinks is he has significant mood swings and problems with psychotic symptoms, including visual hallucinations, auditory hallucinations, and olfactory hallucinations. The patient also gets paranoid, and he has a terrible time sleeping. His daughter concurs with this assessment, stating that the patient has struggled with mood swings and bad thinking. His U-tox was negative on admission, and he was admitted from the ER, per staff report, with altered mental status. At this point in time, the patient denies any suicidal or homicidal ideations. He does feel that he is suspicious. He states that he is having problems with his memory, and he endorses visual hallucinations and olfactory hallucinations but denies any auditory hallucinations at this point in time. The patient states that, if he could get on something that would help him think more clearly and have a more stable mood, he would probably do much better, and his daughter agrees with this assessment. He states he was recently started on some Zyprexa, but this has not really helped him, and this was started by a nurse practitioner, Brigette Downey, whom he had been seeing in the area. Then, he also tried Seroquel, and while the Seroquel initially helped "it didn't seem to last" according to the patient. MEDICATIONS AT THE TIME OF PRESENTATION: Zyprexa. ALLERGIES: No known drug allergies. PAST MEDICAL HISTORY: 1. UTI, for which the patient is currently being treated. 2. History of DVT. REVIEW OF SYSTEMS: Aside from genitourinary and cardiovascular, all other major organ systems are negative at this point in time for acute difficulties or complications. FAMILY PSYCHIATRIC AND CD HISTORY: The patient reports daughters have a history of clinical depression and bipolar affective disease. The patient also has a sister who has depression and is well treated with Cymbalta. PAST PSYCHIATRIC, MEDICATIONS, AND CD HISTORY: The patient reports multiple psychiatric hospitalizations in the past and 7 CD treatments. He drinks alcohol, but has been sober for 4 weeks. Denies any previous suicide attempts or self-injurious behaviors. PAST PSYCHIATRIC MEDICATION HISTORY: Includes trazodone, which did help him sleep, but per daughter's report, seemed to worsen his mood swings. Primary outpatient care provider is Brigette Downey. SOCIAL HISTORY: The patient was born and raised in [place], [place]. He works out in the [employer]. He has been , but does not appear to be at this point in time. He has a couple of daughters who are pretty supportive, although in particular, the one that lives in the area near him. Denies any legal issues at this point in time. Has been to AA in the past, and that has helped him when he has gone. MENTAL STATUS EXAM: The patient is a 63-year-old white male, in no apparent distress. Speech is of regular rate and rhythm. The patient is cognitively oriented x2, to person and place, but not to date. There are no abnormal motor movements or tics observed. Gait is steady. Station is normal. Mood is frustrated. Affect is cooperative overall for the purposes of the inpatient consult. There is no behavioral or stated evidence of acute suicidal or homicidal ideations. Thought content is significant for visual hallucinations and olfactory hallucinations. Thought processes are significant for some thought blocking. There are no acute manic symptoms or loose associations evident. Judgment and insight appear impaired at this point in time secondary to deficits in his cognition. Motivation for help appears fair to good. VITAL SIGNS: 131/77, 94, 16, and 98.9 degrees. IMPRESSION: [place] I: 1. Bipolar affective disease, mixed type, F31.60. 2. Alcohol dependence, F10.20, and is currently in remission x4 weeks. 3. Psychosis, not otherwise specified, F29. 4. Anxiety disorder, not otherwise specified, F41.9. 5. Rule out pseudodementia. 6. Rule out alcohol dementia symptoms. 7. Rule out major depressive disorder. [place] II: None. [place] III: 1. Urinary tract infection, for which the patient is currently being treated. 2. History of deep vein thrombosis. [place] IV: Severe. [place] V: 55. PLAN: 1. Discontinue trazodone. 2. Discontinue Zyprexa. 3. Begin a trial of Seroquel 200 mg at bedtime, increasing to 300 mg at bedtime thereafter, to help with clarity of thought, mood stability, elimination of psychotic symptoms, anxiety reduction, sleep initiation and maintenance. 4. Begin a trial of Topamax 25 mg b.i.d. x7 days, increasing to 50 mg b.i.d. thereafter, to help with mood stability and anxiety reduction. 5. Folic acid supplementation. 6. Thiamine supplementation. 7. Other medications as dosed and prescribed by the patient's primary inpatient care provider team. 8. Sobriety. 9. Recommend that AA rep visit the patient while on unit. 10.Recommend that the patient attend AA upon discharge to the community. 11.Recommend the patient follow up with outpatient Psychiatry when medically stabilized and discharged back to the community. 12.I do feel the patient, when medically stabilized, is safe to be discharged back to the community, in the care of his daughter, as he does not appear to be a danger to himself or others at this point in time. If the patient presents in a similar fashion, would seriously entertain options for inpatient CD treatment. 13.We will continue to follow up with the patient on an as-needed basis while he remains on the inpatient MedSurg unit at [place], [place]. 14.We will follow up with the patient sooner if there are any complications in the interim. 15.Crisis plan is in place. NATHALIE / ELMA /[id number]
== END 2019-05-22 12:45 | disposition home or self-care (01) ==
LOC: MW.ED 16:02 → MW.MS 20:07
PROVIDERS: ADMIT Internal Medicine; ATTEND Internal Medicine
DX: R41.82 Altered mental status, unspecified (principal); N39.0 Urinary tract infection, site not specified; F17.210 Nicotine dependence, cigarettes, uncomplicated
CPT/HCPCS: 36415; 70450; 80048; 80053; 80305; 80320; 80329; 81001; 82945; 83735; 84157; 84443; 85025; 85610; 85730; 86592; 86788; 86789; 87070; 87086; 87205; 87529; 89050; 93005; A9270; J0133; J0696; J1630; J2060; J2250; J7050; 62270; 96365; 96367; 96372; 96375; 96376; 99285-25; G0378; G0480

== ENCOUNTER 2024-10-14 15:18 | Emergency (ER) | payer MEDICARE | END 2024-10-14 16:19 | disposition home or self-care (01) | LOC: MW.ED 15:18 | DX: K04.7 Periapical abscess without sinus (principal); K02.9 Dental caries, unspecified; Z79.899 Other long term (current) drug therapy; Z75.3 Unavailability and inaccessibility of health-care facilities | CPT/HCPCS: 99282 ==

== ENCOUNTER 2024-11-24 13:29 | Emergency (ER) | payer MEDICARE ==
[2024-11-24] MEDS: Amoxicillin/Clavulanate K 875-125 MG Tab PO ONE (14:00)
[2024-11-24 14:22] LABS: BASOPHILS ABSOLUTE AUTO 0.08 K/uL (0.00-0.20); BASOPHILS PERCENT AUTO 0.8 % (0.0-1.0); EOSINOPHILS ABSOLUTE AUTO 0.10 K/uL (0.00-0.45); EOSINOPHILS PERCENT AUTO 1.0 % (0.0-6.0); IMMATURE GRAN ABSOLUTE AUTO 0.04 K/uL (0.00-0.05); IMMATURE GRAN PERCENT AUTO 0.4 % (0.0-0.4); LYMPHOCYTES ABSOLUTE AUTO 2.48 K/uL (1.00-4.80); LYMPHOCYTES PERCENT AUTO 25.9 % (24.0-44.0); MEAN PLATELET VOLUME 10.4 fL (9.4-12.4); MONOCYTES ABSOLUTE AUTO 0.90 K/uL (0.00-0.80); MONOCYTES PERCENT AUTO 9.4 % (0.0-8.0); NEUTROPHILS ABSOLUTE AUTO 5.97 K/uL (1.80-7.70); NEUTROPHILS PERCENT AUTO 62.5 % (41.0-71.0); NRBC ABSOLUTE 0.00 K/uL (0.00-0.02); NRBC PERCENT 0.0 /100WBC (0.0-0.2); PLATELET COUNT,PLT 150 K/uL (150-400); RED BLOOD CELL COUNT 4.77 M/uL (4.52-5.90); WHITE BLOOD CELL COUNT,WBC 9.57 K/uL (3.9-11.3)
[2024-11-24 15:00] LABS: A/G RATIO 0.9 (0.9-1.6); ALANINE AMINOTRANSFERASE,ALT 10.0 IU/L (14-63); ASPARTATE AMNIOTRANSFERASE,AST 14.0 IU/L (15-37); BILIRUBIN TOTAL 0.4 mg/dL (0.2-1.0); BLOOD UREA NITROGEN,BUN 9.0 mg/dL (7.0-18.0); CARBON DIOXIDE,CO2 31.0 mmol/L (21.0-32.0); CHLORIDE,CL 105.0 mmol/L (98-107); CREATININE 0.9 mg/dL (0.8-1.3); EST CRCL DRUG DOSING (CG) 72.83 mL/min; ESTIMATED GFR 91.0 mL/min (>60); GLUCOSE RANDOM 114.0 mg/dL (74-106); POTASSIUM,K 4.6 mmol/L (3.5-5.1); PROTEIN TOTAL,TP 7.1 g/dL (6.4-8.2); SODIUM,NA 140.0 mmol/L (136-148)
== END 2024-11-24 15:28 | disposition home or self-care (01) ==
LOC: MW.ED 13:29
DX: K02.9 Dental caries, unspecified (principal); Z79.899 Other long term (current) drug therapy
CPT/HCPCS: 36415; 80053; 85025; 99283; A9270